=== PATIENT | female | born 2000 | race African-American/Black ===

== ENCOUNTER 2024-05-09 18:40 | Emergency (ER) | payer OTHER ==
[~2024-05-09] VITALS: Ht 167.6 cm; Wt 96.7 kg
[2024-05-09] MEDS ORDERED: LEXAPRO10 MG PO ×2 (18:54→20:00)
[2024-05-09] MEDS ORDERED: ADDERALL XR 1515 MG PO (18:55)
[2024-05-09] MEDS ORDERED: HYDROXYZINE HCL25 MG PO ×2 (18:55→20:00)
[2024-05-09] MEDS ORDERED: LORazepam 0.5 MG TAB PO ONE (19:30)
[2024-05-09 20:05] VITALS: BP 124/65
== END 2024-05-09 20:05 | disposition home or self-care (01) ==
LOC: ED 18:40
DX: F41.0 Panic disorder [episodic paroxysmal anxiety] (principal); J45.909 Unspecified asthma, uncomplicated; Z79.899 Other long term (current) drug therapy
CPT/HCPCS: 99283

== ENCOUNTER 2024-06-05 20:08 | Emergency (ER) | payer OTHER ==
[~2024-06-05] VITALS: Ht 167.6 cm; Wt 92.0 kg
[~2024-06-05 20:08] MED LIST: ADDERALL XR 1515 MG PO; HYDROXYZINE HCL25 MG PO; LEXAPRO10 MG PO
--- OUTSIDE RECORDS SUMMARY | 2024-06-05 20:15 | XMS ---
PreManage Notification: DAVID MAZARIEGOS [employer] Information Clerk Events No recent Security Events currently on file CRITERIA MET - [facility] - 2 Visits in 30 Days CARE PROVIDERS [facility], [facility]: [facility] ([facility]) PHONE: [phone] Erin has no Care Guidelines for this patient. Michael VISIT COUNT (12 MO.) 2 [facility] TOTAL 2 NOTE: Visits indicate total known visits. ED/C VISIT TRACKING (12 MO.) 06/05/2024 20:08 [facility] [place] TYPE: Emergency COMPLAINT: - COUGH 05/09/2024 18:41 [facility] [place] TYPE: Emergency COMPLAINT: - PANIC ATTACK DIAGNOSES: - Anxiety disorder, unspecified - Other parts counterman (current) drug therapy - Palpitations - Panic disorder [episodic paroxysmal anxiety] - Unspecified asthma, uncomplicated INPATIENT VISIT TRACKING (12 MO.) No inpatient visits to display in this time frame [email or web address]
[2024-06-05] MEDS ORDERED: DEXAMETHASONE SOD PHOS 10 MG/ML VIAL PO ONE (21:30)
[2024-06-05] MEDS ORDERED: ALBUTEROL/IPRATROPIUM 3 ML NEB INH ONE (21:30)
[2024-06-05 21:46] LABS: CORONAVIRUS COVID-19 AG NEGATIVE (NEGATIVE); INFLUENZA A AG NEGATIVE (NEGATIVE); INFLUENZA B AG NEGATIVE (NEGATIVE)
[2024-06-05] MEDS ORDERED: INHALER, ASSIST DEVICES 1 EACH SPACER MISC ONE (22:00)
[2024-06-05] MEDS ORDERED: ALBUTEROL SULFATE 8 GM HOME.PACK INH ONE (22:00)
[2024-06-05] MEDS ORDERED: METHYLPREDNISOLO4 M1 PO (22:01)
[2024-06-05 22:09] VITALS: BP 134/83
== END 2024-06-05 22:10 | disposition home or self-care (01) ==
LOC: ED 20:08
PROVIDERS: Internal Medicine
DX: J06.9 Acute upper respiratory infection, unspecified (principal); B97.89 Other viral agents as the cause of diseases classified elsewhere; J45.909 Unspecified asthma, uncomplicated; F32.A Depression, unspecified; Z79.899 Other long term (current) drug therapy
CPT/HCPCS: 36415; 84703; 94640; 99283; J1100

== ENCOUNTER 2024-07-14 11:13 | Emergency (ER) | payer OTHER | END 2024-07-14 13:10 | disposition home or self-care (01) | LOC: ED 11:13 | DX: R53.1 Weakness (principal); J45.909 Unspecified asthma, uncomplicated; Z79.899 Other long term (current) drug therapy ==